=== PATIENT | female | born 1965 | race Two or more races ===

== ENCOUNTER 2024-07-23 18:19 | Emergency (ER) | payer MEDICARE, MEDICAID, SELFPAY ==
[2024-07-23 19:45] VITALS: BP 104/66; PULSE 78; RESP 18; TEMP 37.1; O2SAT 95; BMI 22.6
--- NOTE | 2024-07-23 19:56 | XR_ITS ---
Examination: CT brain head without contrast. 2-D sagittal coronal reconstructions Date and time of exam:July 23, 2024 2008 hours Comparison December 04, 2018 INDICATIONS: Patient fell today with image of the head, head pain, history of hemorrhagic stroke and history AVM CTDI: vol (mGy):46.8 DLP: (mGycm):916 Technique: Multiple CT axial sections of the brain have been obtained, 5 mm slice thickness. Contrast has not been administered. 2-D sagittal, coronal reconstructions have been obtained Low dose protocols were performed. One or more of the following dose reduction techniques were used; automated exposure control, adjustment of the mA and/or KV according to patient size, use of iterative reconstruction technique. Findings: No significant ventricular enlargement. Stable old infarct right middle cerebral artery distribution with multiple areas of calcification Intra-axial or extra-axial hemorrhage density is not seen. No mass effect or midline shift Basal cisterns are not remarkable. Fourth ventricle is midline. Left frontal craniotomy defect Impression: No interval acute hemorrhage, mass effect or midline shift
--- NOTE | 2024-07-23 20:32 | PD.EDDIZZY ---
ED Dizzyness RME/HPI General Chief Complaint: Nausea/Vomiting/Diarrhea Stated Complaint: NAUSEA, DIZZY AFTER FALL Time Seen by Provider: 07/23/24 19:56 Arrival date/time: 07/23/24 18:19 58F with history of CVA (L-sided residual weakness; hemorrhagic due to AVM) and hypothyroidism presents to ED with dizziness and N/V after patient slipped and fell while walking out of [employer]. Patient denies AMS, seizures, and vision changes (baseline cannot see much out of L eye). Limitations: no limitations Related Data Home Medications ?Medication ?Instructions ?Recorded ?Confirmed levothyroxine 100 mcg tablet 100 mcg PO QDAY #0 tabs 01/21/14 03/07/19 albuterol sulfate 90 mcg/actuation 2 puff inhalation Q6HR PRN ALLERGY 02/18/15 03/07/19 aerosol inhaler (ProAir HFA) #0 inhalations levetiracetam 250 mg tablet 250 mg PO BID #0 tabs 02/18/15 03/07/19 (Keppra) loratadine 10 mg tablet (Claritin) 10 mg PO QDAY #0 tabs 02/18/15 03/07/19 sertraline 50 mg tablet (Zoloft) 50 mg PO QDAY 03/07/19 03/07/19 Allergies Allergy/AdvReac Type Severity Reaction Status Date / Time No Known Allergies Allergy Unverified 07/23/24 18:22 Review of Systems Review of Systems Systems Reviewed: All systems reviewed, normal except as documented Constitutional Constitutional: Reports system reviewed and no additional complaints, except as documented, Denies fever(s) and Denies headache(s) ENT Ears, Nose, Mouth, and Throat: Reports as per HPI, Denies disequilibrium, Denies headache(s) and Reports vertigo Cardiovascular Cardiovascular: Reports system reviewed and no additional complaints, except as documented, Denies chest pain and Denies dyspnea Respiratory Respiratory: Reports system reviewed and no additional complaints, except as documented, Denies cough and Denies dyspnea Gastrointestinal Gastrointestinal: Reports system reviewed and no additional complaints, except as documented, Reports as per HPI, Denies abdominal pain, Reports nausea and Reports vomiting Neurologic Neurologic: Reports system reviewed and no additional complaints, except as documented, Denies confusion, Denies disequilibrium, Denies headache(s) and Reports vertigo Psychiatric Psychiatric: Denies confusion Past Medical History Past Medical History NEUROLOGIC: Positive Neurological Disorders and Cerebrovascular Accident CARDIAC: Positive Cardiac Disorders, Hypercholesterolemia and Aneurysm; Negative Congestive Heart Failure RESPIRATORY: Negative Chronic Obstructive Pulmonary Disease (COPD) or Asthma GENITOURINARY: Negative Renal Disease ENDOCRINE: Positive Endocrine Disorders and Hyperthyroidism; Negative Diabetes Mellitus Type 1 or Diabetes Mellitus Type 2 HEMATOLOGIC: Negative Sickle Cell Disease Family History FAMILY HISTORY: Positive Family Cardiac Disorders Social History SMOKING STATUS: Never smoker SUBSTANCE USE: does not use ED Exam General Limitations: Present no limitations General appearance: Present alert and in no apparent distress Head Head exam: Present atraumatic Expanded Eye Exam Pupils: Left: non reactive/fixed, Right: reactive and Bilateral: regular, round ENT ENT exam: Present normal exam, normal oropharynx and mucous membranes moist Neck Neck exam: Present normal inspection, full ROM and trachea midline Chest Chest inspection: Present normal inspection and symmetric chest wall rise Respiratory Respiratory exam: Present normal lung sounds bilaterally Cardiovascular Cardiovascular exam: Present regular rate, normal rhythm and normal heart sounds Abdominal Exam Abdominal exam: Present soft and normal bowel sounds Extremities Exam Extremities exam: Present normal inspection and full ROM Back Exam Back exam: Present normal inspection and full ROM Neurological Exam Neurological exam: Present alert, oriented X3 and CN II-XII intact Psychiatric Psychiatric exam: Present normal affect and normal mood Skin Skin exam: Present warm, dry, intact and normal color Course Quality Measures none Orders Category Date Time Status CT head/brain wo con Stat Exams 07/23/24 19:56 Completed Vital Signs Vital signs: Vital Signs Temperature 98.8 F 07/23/24 19:45 Pulse Rate 78 07/23/24 19:45 Respiratory Rate 18 07/23/24 19:45 Blood Pressure 104/66 07/23/24 19:45 Pulse Oximetry (%) 95 07/23/24 19:45 Oxygen Delivery Method Room Air 07/23/24 19:45 O2 at 95% on RA and WNLs Dizziness MDM Narrative MDM Narrative:: 58F with history of CVA (L-sided residual weakness; hemorrhagic due to AVM) and hypothyroidism presents to ED with dizziness and N/V after patient slipped and fell while walking out of [employer]. Patient denies AMS, seizures, and vision changes (baseline cannot see much out of L eye). Physical exam reveals normal R pupil response and EOM. L pupil unresponsive (baseline). CN II-XII grossly intact. Patient is aferile, calm, and alert. CT no new bleed. Smash Piecer given. Patient data External records reviewed:: [facility] previous records Clinical information provided by:: patient Social determinants that could affect healthcare access:: none Patient has the following chronic illnesses:: CVA and hypothyroidism How is presenting disease/condition affected by chronic disease/condition?: exacerbated by Evaluation data The following diagnostics were reviewed and interpreted by me:: radiology exam(s) Lab and/or radiology exams considered but not ordered:: ordered Interpretation Summary: above Medications / Prescriptions Medications or Prescriptions considered but not ordered:: not ordered Medication administrations:: n/a Consultations Consultation(s) initiated? (list below): No Diagnosis Dizziness Differential Diagnosis: adverse reaction to drug, benign paroxysmal positional vertigo, orthostatic hypotension, vertebral basilar insufficiency, cerebrovascular accident, acute vestibular neuronitis, transient cerebral ischemia and other (brain bleed) Most likely diagnosis given after review of the tests above:: CHI Admission Indicated Admission indicated?: not indicated Admission Request Was there a request for admission?: No Disposition Plan Disposition Plan: Discharge Discharge Attestation Discharge Attestation: The patient and all family members were given an opportunity to ask questions and understood the discharge instructions. Discharge instructions specifically effects, indications for sooner follow up or return to the emergency department, and the expected course of current diagnosis. Patient condition: Stable Discharge Plan Plan Patient Disposition: HOME (Self Care) Disposition Comment: Stable Prescriptions/Referrals Prescriptions/Med Rec: No Action levothyroxine 100 mcg Tablet 100 mcg PO QDAY Qty: 0 levetiracetam [Keppra] 250 MG tablet 250 mg PO BID Qty: 0 albuterol sulfate [ProAir HFA] 8.5 GM HFA aerosol inhaler 2 puff Inhalation Q6HR PRN (Reason: ALLERGY) Qty: 0 loratadine [Claritin] 10 MG tablet 10 mg PO QDAY Qty: 0 sertraline [Zoloft] 50 mg Tablet 50 mg PO QDAY Referrals: Soto Carreon MD [Primary Care Provider] - In 1 week Problem List Clinical Impression: CHI (closed head injury) Patient/Caregiver Discharge Instructions Education Materials: ED Head Injury (Adult) Additional Instructions: Please follow-up with PCP within 24-48 hours and return immediately if symptoms worsen. Print Language: [place] Stand Alone Forms: Patient Portal Info Letter PA/BODY SHOP MANAGER Supervising Physician CONSTANZA/BODY SHOP MANAGER Supervising Physician: Dr. Ku
== END 2024-07-23 22:00 | disposition home or self-care (01) ==
PROVIDERS: Emergency Provider Emergency Medicine; PCP Family Medicine
DX: S09.90XA Unspecified injury of head, initial encounter (principal); W01.0XXA Fall on same level from slipping, tripping and stumbling without subsequent striking against object, initial encounter; Y93.01 Activity, walking, marching and hiking; E03.9 Hypothyroidism, unspecified; I69.354 Hemiplegia and hemiparesis following cerebral infarction affecting left non-dominant side
CPT/HCPCS: 70450; 99284